=== PATIENT | female | born 1965 | race Caucasian/White ===

== ENCOUNTER → 2019-11-19 | Outpatient (CLI) | payer BC ==
[~2019-11-19] MED LIST: ASPIRIN E.C. 8181 MG PO; COZAAR100 MG PO; FARXIGA5 PO; GLUCOPHAGE500 MG/TAB PO; KLOR-CON M2020 MEQ PO; LASIX 20MG TABL20 MG PO; LASIX 40MG TABL40 MG PO; LOPRESSOR 225 MG/TAB PO; NORCO 325 MG-51 TAB PO; TOPROL XL 50MG50 MG PO; ZESTRIL 20MG TA20 MG PO; ZOCOR 40MG40 MG PO
== END ==
LOC: COL.LAB 14:54 → ZCOL.LAB 14:54 → COL.LAB 14:59
DX: U07.1 COVID-19 (principal)